=== PATIENT | female | born 1980 | race Caucasian/White ===

== ENCOUNTER 2017-09-08 12:26 | Emergency (ER) | payer OTHER ==
[~2017-09-08] VITALS: Ht 175.3 cm; Wt 107.0 kg
[2017-09-08 12:39] VITALS: BP 135/67
[2017-09-08 13:33] LABS: INFLUENZA A PATIENT NEGATIVE (NEGATIVE); INFLUENZA B PATIENT NEGATIVE (NEGATIVE)
[2017-09-08] MEDS ORDERED: AMOX500T PO (13:49)
[2017-09-08] MEDS ORDERED: PROM118S2 PO (13:49)
--- NOTE | 2017-09-08 13:49 | PHYS DOC ---
Past History Past Medical History: Anxiety, Asthma, Bipolar, GERD, MA, UTI Past Surgical History: Cholecystectomy Smoking: Less than 1pk/day Alcohol Use: None Drug Use: None Adult General Chief Complaint Chief Complaint: flulike symptoms HPI HPI 37-year-old female patient G 3 P2 at 25 weeks of gestation with history of bipolar disorder and frequent emergency room visits complaining of nasal congestion and productive and nonproductive cough for the last 4-5 days with myalgia and headache. Patient states she was seen at [facility] 4 days ago for the same problem and had OB evaluation and instructed to take Benadryl for her cough that did not help for her problem. She denies abdominal pain, vaginal bleeding, fever and chills, vomiting and diarrhea. Review of Systems Review of Systems Constitutional: Denies fever or chills [] Eyes: Denies change in visual acuity, redness, or eye pain [] HENT: Reports nasal congestion or sore throat Respiratory: Reports cough, denies shortness of breath [] Cardiovascular: No additional information not addressed in HPI [] GI: Denies abdominal pain, nausea, vomiting, bloody stools or diarrhea [] : Denies dysuria or hematuria [] Musculoskeletal: Denies back pain or joint pain [] Integument: Denies rash or skin lesions [] Neurologic: Denies headache, focal weakness or sensory changes [] Endocrine: Denies polyuria or polydipsia [] All other systems were reviewed and found to be within normal limits, except as documented in this note. Allergies Allergies Allergies Coded Allergies Type Severity Reaction Last Updated Verified No Known Drug Allergies 09/14/15 No Physical Exam Physical Exam Constitutional: Well nourished, no acute distress, non-toxic appearance. [] HENT: Normocephalic, atraumatic, bilateral external ears normal, oropharynx moist, no oral exudates, nose normal. [] Eyes: PERRLA, EOMI, conjunctiva normal, no discharge. [] Neck: Normal range of motion, no tenderness, supple, no stridor. [] Cardiovascular:Heart rate regular rhythm, no murmur [] Lungs & Thorax: Bilateral breath sounds clear to auscultation [] Abdomen: Bowel sounds normal, soft, no tenderness, no masses, no pulsatile masses, gravid abdomen, no contraction or tenderness. [] Skin: Warm, dry, no erythema, no rash. [] Back: No tenderness, no CVA tenderness. [] Extremities: No tenderness, no cyanosis, no clubbing, ROM intact, no edema. [] Neurologic: Alert and oriented X 3, normal motor function, normal sensory function, no focal deficits noted. [] Psychologic: Anxious, judgement normal, mood normal. [] Current Patient Data Vital Signs Vital Signs Date Time Temp Pulse Resp B/P (MAP) Pulse Ox O2 Delivery O2 Flow Rate FiO2 09/08/17 12:39 97.9 93 16 Room Air Lab Results Laboratory Tests Test 09/08/17 13:00 Influenza Type A (Rapid) Negative (NEGATIVE) Influenza Type B (Rapid) Negative (NEGATIVE) EKG EKG [] Radiology/Procedures Radiology/Procedures [] Course & Med Decision Making Course & Med Decision Making Evaluation of patient in ER showed 37-year-old female patient with history of frequent emergency room visits and drug-seeking behavior complaining of URI symptoms for 4 days. Patient is currently and smokes 1 pack cigarettes a day. The flu test was negative. Plan discharge patient home with diagnosis of upper respiratory infection. discharge: I've spoken with the patient and/or caregivers. I've explained the patient's condition, diagnosis and treatment plan based on information available to me at this time. I've answered the patient's and/or caregivers questions and addressed any concerns. The patient and/or caregivers have a good understanding the patient's diagnosis, condition and treatment plan as can be expected at this point. Vital signs have been stabilized. The patient's condition is stable for discharge from the emergency department. The patient will pursue further outpatient evaluation with her primary care provider or other designated consulting physician as outlined in the discharge instructions. Patient and/or caregivers are agreeable to this plan of care and follow-up instructions have been explained in detail. The patient and/or caregivers have received these instructions in written format and expressed understanding of these discharge instructions. The patient and her caregivers are aware that if any significant change in condition or worsening of symptoms should prompt him to immediately return to this of the closest emergency department. If an emergent department is not readily available I would encourage him to call 911. Lucy Disclaimer Dragon Disclaimer This electronic medical record was generated, in whole or in part, using a voice recognition dictation system. Departure Departure: Impression: Primary Impression: URI (upper respiratory infection) Additional Impressions: Currently Tobacco abuse Tobacco abuse counseling Drug-seeking behavior Disposition: 01 HOME, SELF-CARE (At 1346) Condition: STABLE Referrals: PRAKASH PANTOJA (PCP) Patient Instructions: Smoking Cessation, Upper Respiratory Infection, Adult Additional Instructions: Drink plenty of liquids Follow-up with your primary care physician in 3-5 days Return to ER if not getting better Scripts Promethazine Hcl/Codeine (PROMETHAZINE-CODEINE SYRUP) 118 Ml Syrup 5 ML PO Q4-6HRS, #60 ML Prov: SHARI STEIN MD 09/08/17 Amoxicillin (AMOXICILLIN) 500 Mg Tablet 1 TAB PO TID, #21 TAB Prov: SHARI STEIN MD 09/08/17 Problem Qualifiers SHARI STEIN MD Sep 08, 2017 13:49
== END 2017-09-08 14:03 | disposition home or self-care (01) ==
LOC: ER 12:26
DX: O99.512 Diseases of the respiratory system complicating pregnancy, second trimester (principal); J06.9 Acute upper respiratory infection, unspecified; O99.612 Diseases of the digestive system complicating pregnancy, second trimester; O99.342 Other mental disorders complicating pregnancy, second trimester; O99.332 Smoking (tobacco) complicating pregnancy, second trimester; K21.9 Gastro-esophageal reflux disease without esophagitis; J45.909 Unspecified asthma, uncomplicated; F41.9 Anxiety disorder, unspecified; F31.9 Bipolar disorder, unspecified; Z76.5 Malingerer [conscious simulation]; Z71.6 Tobacco abuse counseling; Z3A.25 25 weeks gestation of pregnancy
CPT/HCPCS: 87804; 99284